=== PATIENT | male | born 1970 | race Caucasian/White ===

== ENCOUNTER → 2018-05-28 | Outpatient (CLI) | payer OTHER | LOC: PT 08:30 | DX: Z01.818 Encounter for other preprocedural examination (principal) ==

== ENCOUNTER 2018-07-02 16:00 | Outpatient (RCR) | payer OTHER | END 2018-07-02 16:30 | disposition home or self-care (01) | LOC: PT 16:00 | DX: Z47.89 Encounter for other orthopedic aftercare (principal) ==

== ENCOUNTER 2022-11-26 08:31 | Outpatient (RCR) | payer BC | END 2022-12-06 | disposition home or self-care (01) | LOC: PT | DX: M25.561 Pain in right knee (principal) ==